=== PATIENT | male | born 1965 | race Caucasian/White ===

== ENCOUNTER 2019-03-16 09:01 | Day surgery (SDC) | payer BC ==
[2019-03-16] VITALS (13 sets, daily range): BP systolic 107–155; BP diastolic 58–91; PULSE 80–90; RESP 10–18; Ht 188 cm; Wt 112.4 kg
[~2019-03-16] VITALS: Ht 188 cm; Wt 112.4 kg
[~2019-03-16 09:01] MED LIST: AMLO-218 PO; ATOR20TA38 PO; INSU100I12 SQ; INSU100I33 SC; LOSA100T15 PO; METO-319 PO; POLYMYXIN/BACITRACIN 1L IRRIG IRR ONE
[2019-03-16] MEDS ORDERED: CEFAZOLIN 2 GM/50 ML (PMX) 50 ML IVPB ONE (11:00)
[2019-03-16] MEDS ORDERED: INSULIN ASPART [NOVOLOG] 3 ML PEN SC ONE (11:00)
[2019-03-16] MEDS ORDERED: INSULIN REGULAR, HUMAN 100 UNIT/1 ML 3ML VIAL IV ONE (11:00)
[2019-03-16] MEDS ORDERED: BUPIVACAINE 0.5% (SDV) 30 ML INJ ONE ×2 (11:12→12:53)
[2019-03-16] MEDS ORDERED: POLYMYXIN/BACITRACIN 1L IRRIG ONE ×2 (11:13→12:19)
[2019-03-16] MEDS ORDERED: CEFAZOLIN 1 GM INJ ONE (12:15)
[2019-03-16] MEDS ORDERED: PROPOFOL 20 ML ONE (12:15)
[2019-03-16] MEDS ORDERED: MEPERIDINE 100 MG INJ ONE (12:15)
[2019-03-16] MEDS ORDERED: LIDOCAINE 2% (SDV) 5 ML INJ ONE (12:15)
[2019-03-16] MEDS ORDERED: POLYMYXIN/BACITRACIN 1L IRRIG IRR ONE (12:36)
[2019-03-16] MEDS ORDERED: METOCLOPRAMIDE 10 MG INJ IV PRN (13:30)
[2019-03-16] MEDS ORDERED: hydrALAzine 20 MG INJ IV PRN (13:30)
[2019-03-16] MEDS ORDERED: DIPHENHYDRAMINE 50 MG INJ IV PRN (13:30)
[2019-03-16] MEDS ORDERED: ONDANSETRON 4 MG INJ IV PRN (13:30)
[2019-03-16] MEDS ORDERED: MIDAZOLAM 1 MG/ML 2 ML INJ IV PRN (13:30)
[2019-03-16] MEDS ORDERED: LABETALOL HCL 20MG INJ IV PRN (13:30)
[2019-03-16] MEDS ORDERED: MEPERIDINE 25 MG INJ IV PRN (13:30)
[2019-03-16] MEDS ORDERED: OXYCODONE/ACETAMINOPHEN (5/325) TAB PO PRN ×2 (13:30)
[2019-03-16] MEDS ORDERED: FENTAnyl 50 MCG/ML VIAL IV PRN ×3 (13:30)
[2019-03-16] MEDS ORDERED: EPHEDrine 25 MG/5 ML SYG IV PRN (13:30)
== END 2019-03-16 15:20 | disposition home or self-care (01) ==
LOC: SDS 09:01
PROVIDERS: ATTEND Podiatrist Foot & Ankle Surgery
DX: M89.9 Disorder of bone, unspecified (principal); S91.301A Unspecified open wound, right foot, initial encounter; X58.XXXA Exposure to other specified factors, initial encounter; E11.9 Type 2 diabetes mellitus without complications; E66.01 Morbid (severe) obesity due to excess calories; I10 Essential (primary) hypertension; E78.5 Hyperlipidemia, unspecified; Z79.4 Long term (current) use of insulin
CPT/HCPCS: 28805; 73630; 82962; 88304; 88311; 93005; J0690; J1815; J2175; Z7512; Z7610